=== PATIENT | male | born 1985 | race Two or more races ===

== ENCOUNTER 2023-09-25 19:03 | Emergency (ER) | payer OTHER, BC, SELFPAY ==
--- NOTE | ~2023-09-25 | XR_ITS ---
EXAMINATION: XR SHOULDER, LEFT CLINICAL INFORMATION: Left shoulder pain COMPARISON: None available. TECHNIQUE: AP external rotation, Grashey, scapular Y, and axillary views of the left shoulder. FINDINGS: The bones and soft tissues are normal. No fracture. Glenohumeral and acromioclavicular alignment is anatomic with normal joint space. No abnormal soft tissue calcifications. XR/XR shoulder LT min 2V IMPRESSION: Normal left shoulder.
[2023-09-25 22:24] VITALS: BP 136/75; PULSE 59; RESP 14; TEMP 36.4; O2SAT 98; BMI 28.4
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
[2023-09-26] MEDS: Ibuprofen 600 MG TABLET PO (00:18)
== END 2023-09-26 00:21 | disposition home or self-care (01) ==
PROVIDERS: Emergency Provider Internal Medicine
DX: S66.912A Strain of unspecified muscle, fascia and tendon at wrist and hand level, left hand, initial encounter (principal); R25.2 Cramp and spasm; V47.5XXA Car driver injured in collision with fixed or stationary object in traffic accident, initial encounter; Y93.9 Activity, unspecified; Y92.9 Unspecified place or not applicable; Y99.8 Other external cause status
CPT/HCPCS: 73030; 99283

== ENCOUNTER 2024-05-26 03:36 | Emergency (ER) | payer OTHER, SELFPAY ==
--- NOTE | ~2024-05-26 | XR_ITS ---
EXAMINATION: XR HAND/WRIST, LEFT CLINICAL INFORMATION: Pain COMPARISON: None available. TECHNIQUE: Four views of the left hand and wrist. FINDINGS: No acute visible fracture or dislocation. Negative ulnar variance. 2 mm ossific focus along the radial scaphoid interval nonspecific though may reflect a periarticular osteophyte versus summation artifact in this region. Joint space alignment otherwise maintained. Soft tissues are unremarkable. XR/XR hand wrist LT IMPRESSION: 1. No acute visible fracture or dislocation. 2. Negative ulnar variance. 3. 2 mm ossific focus along the radial scaphoid interval nonspecific though may reflect a periarticular osteophyte versus summation artifact in this region. Electronically signed by: Bridget Goodman MD 05/26/2024 07:16 AM [facility]
[2024-05-26 03:40] VITALS: BP 130/87; PULSE 60; RESP 14; TEMP 35.9; O2SAT 100; BMI 28.6
[2024-05-26 03:53] VITALS: BP 122/78; PULSE 57; RESP 16; TEMP 36.8; O2SAT 98
--- NOTE | 2024-05-26 04:46 | ED.EXTPRO ---
HPI - Extremity Problem General Chief complaint: Extremity Injury, Upper Stated complaint: left hand injured at work Time Seen by Provider: 05/26/24 04:45 Source: patient Mode of arrival: ambulatory Limitations: no limitations History of Present Illness ED Provider: jabier DOSHI Narrative: Patient apparently got left middle finger pinched with a crowbar at work came with small subungual hematoma and pain no other injuries Related Data Previous Rx's ?Medication ?Instructions ?Recorded ibuprofen 600 mg tablet 600 mg PO Q6H PRN fever or pain 09/26/23 #30 tabs Allergies Allergy/AdvReac Type Severity Reaction Status Date / Time No Known Allergies Allergy Verified 05/26/24 03:43 Review of Systems Review of Systems: Yes all other systems are reviewed and are negative [facility] Social History Social History Smoked in Last 30 Days: Yes Use of substances other than those prescribed or required for medical reasons: No Advance Directives: No Do you have a plan to hurt others: No Plan Physical Exam Vital Signs: Vital Signs: Last Vital Signs Temp 98.2 F 05/26/24 03:53 Pulse 57 05/26/24 03:53 Resp 16 05/26/24 03:53 BP 122/78 05/26/24 03:53 Pulse Ox 98 05/26/24 03:53 O2 Del Method Room Air 05/26/24 03:53 BMI result Body Mass Index 28.6 Extrem: Hand/finger images: 1. Subungual hematoma involving only 1/3 of the distal finger no soft tissue swelling Medical Decision Making Medical Decision Making [facility] Narrative: Patient had subungual hematoma which happened after crushing injury which was drained using heat cautery Independent Interpretation I performed an independent interpretation of an: Plain X-Ray Interpretation: Negative for fracture Procedures Nail Trephination Location (finger): left Location (toes): third digit Method of drainage: nail cautery Procedure successful: Yes Patient tolerated procedure: No Complications Discharge Plan Discharge Clinical Impression: Subungual hematoma of digit of hand Patient Disposition: Home, Self-Care Instructions: Subungual Hematoma (ED) Additional Instructions: Care as advised Prescriptions: No Action ibuprofen 600 mg tablet 600 mg PO Q6H PRN (Reason: fever or pain) Qty: 30 0RF Stand Alone Forms: Work/School Release Print Language: Mauritian
[2024-05-26 05:19] VITALS: BP 116/77; PULSE 54; RESP 16; TEMP 36.3; O2SAT 99
== END 2024-05-26 05:21 | disposition home or self-care (01) ==
PROVIDERS: Emergency Provider Internal Medicine
DX: S60.032A Contusion of left middle finger without damage to nail, initial encounter (principal); M79.642 Pain in left hand; X58.XXXA Exposure to other specified factors, initial encounter; Y93.89 Activity, other specified; Y92.89 Other specified places as the place of occurrence of the external cause; Y99.0 Civilian activity done for income or pay
CPT/HCPCS: 10140; 73110; 73130; 99284

== ENCOUNTER 2024-06-16 03:30 | Emergency (ER) | payer BC, SELFPAY ==
--- NOTE | ~2024-06-16 | XR_ITS ---
EXAMINATION: XR CHEST CLINICAL INFORMATION: chest pain COMPARISON: None available. TECHNIQUE: Frontal view of the chest was obtained. FINDINGS: No significant abnormality is noted involving the heart, lungs, mediastinum, bony thorax or soft tissues. XR/XR chest 1V IMPRESSION: Unremarkable examination. Electronically signed by: Tuan Schrader MD 06/16/2024 07:35 AM [facility]
--- NOTE | 2024-06-16 03:37 | ECG_ITS ---
Test Reason : CHEST PAIN Blood Pressure : / mmHG Vent. Rate : 070 BPM Atrial Rate : 070 BPM P-R Int : 202 ms QRS Dur : 114 ms QT Int : 376 ms P-R-T Axes : 053 081 058 degrees QTc Int : 406 ms Normal sinus rhythm Normal ECG When compared with ECG of 29-NOV-2015 02:09, No significant change was found Referred By: Generic ED Physician Electronically Signed By:SHIRA KIRBY
[2024-06-16 03:38] VITALS: BP 119/80; BP 122/81; PULSE 62; PULSE 65; RESP 16; TEMP 36.4; O2SAT 100; O2SAT 97; BMI 30.5
[2024-06-16 04:19] LABS: MANUAL DIFF FLAG NO
[2024-06-16 04:21] LABS: Basophils Absolute Auto 0.1 X10*3/uL (0.0-0.2); Basophils Percent Auto 0.7 % (0-2); Eosinophils Absolute Auto 0.2 X10*3/uL (0.0-0.4); Eosinophils Percent Auto 2.3 % (0-4); Hematocrit 46.4 % (42.0-52.0); Hemoglobin 16.4 g/dl (14.0-18.0); Imm Gran Abs Auto 0.03 X10*3/uL (0.00-0.03); Imm Gran Pct Auto 0.3 % (0.0-0.4); Lymphocytes Absolute Auto 2.2 X10*3/uL (1.2-4.9); Lymphocytes Percent Auto 22.4 % (20-40); Mean Corpuscular HGB Conc 35.3 g/dl (31.0-36.0); Mean Corpuscular Hemoglobin 30.5 pg (27.0-33.0); Mean Corpuscular Volume 86.4 fL (80.0-98.0); Mean Platelet Volume 9.7 fL (9.4-12.4); Monocytes Absolute Auto 0.8 X10*3/uL (0.1-1.2); Monocytes Percent Auto 8.5 % (2-11); Neutrophils Absolute Auto 6.4 x10*3/uL (2.0-8.3); Neutrophils Percent Auto 65.8 % (45-73); Platelet Count 194 X10*3/uL (160-400); Red Blood Count 5.37 X10*6/uL (4.60-5.80); Red Cell Distribution Width 12.8 % (11.0-16.0); White Blood Count 9.7 X10*3/uL (4.8-10.8)
[2024-06-16 04:44] LABS: Alanine Aminotransferase 34 U/L (0-40); Alkaline Phosphatase 78 U/L (39-117); Anion Gap 16 (12-20); Aspartate Amino Transferase 35 U/L (5-37); Bilirubin Total 0.3 mg/dL (0.0-1.0); Blood Urea Nitrogen 13 mg/dL (9-16); Carbon Dioxide 21 mmol/L (22-29); Chloride 104 mmol/L (96-108); Creatinine Clr Calc Pharmacy 177.6; Estimated Glomerular Filt Rate > 60; Ethanol 237 mg/dL; Glucose Random 95 mg/dL (60-115); Potassium 3.8 mmol/L (3.3-5.1); Sodium 137 mmol/L (135-145); Total Protein 6.7 g/dL (6.5-8.0)
[2024-06-16 04:54] LABS: Troponin-I High Sensitivity < 2.7 ng/L (<3.5-35.0)
--- NOTE | 2024-06-16 05:09 | PC.NURSE ---
this rn assumed care of pt @ 0338. pt calm and difficulty following direction and answering questions placed on monitor. pt denies SI/HI does state increased and anxiety and depression pt sleeping at this time awaiting to be seen by ed provider
[2024-06-16 06:26] VITALS: BP 113/61; PULSE 63; RESP 20; TEMP 36.6; O2SAT 97
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
[2024-06-16 07:26] VITALS: BP 113/61; PULSE 63; RESP 20; TEMP 36.6; O2SAT 97
== END 2024-06-16 07:27 | disposition home or self-care (01) ==
PROVIDERS: Emergency Provider Emergency Medicine
DX: R07.89 Other chest pain (principal); R00.2 Palpitations; F41.9 Anxiety disorder, unspecified; F41.0 Panic disorder [episodic paroxysmal anxiety]; F10.129 Alcohol abuse with intoxication, unspecified; Z51.81 Encounter for therapeutic drug level monitoring; Y90.7 Blood alcohol level of 200-239 mg/100 ml; Z79.899 Other long term (current) drug therapy
CPT/HCPCS: 36415; 71045; 80053; 80307; 84484; 85025; 93005; 99285

== ENCOUNTER → 2024-06-16 03:37 | Outpatient (BNV) | payer BC, SELFPAY | PROVIDERS: Emergency Provider Emergency Medicine; Visit Provider Internal Medicine | DX: R07.9 Chest pain, unspecified (principal) | CPT/HCPCS: 93010 ==